=== PATIENT | female | born 1995 | race Caucasian/White ===

== ENCOUNTER → 2024-06-18 11:00 | Outpatient (BNV) | payer OTHER, SELFPAY | PROVIDERS: Visit Provider Psychiatry & Neurology Psychiatry | DX: F33.2 Major depressive disorder, recurrent severe without psychotic features (principal); F34.89 Other specified persistent mood disorders; F90.9 Attention-deficit hyperactivity disorder, unspecified type; F63.89 Other impulse disorders | CPT/HCPCS: 90792 ==

== ENCOUNTER 2024-06-23 11:00 | Outpatient (RCR) | payer OTHER, SELFPAY ==
[2024-06-09 11:52] VITALS: BMI 31.6
[2024-06-09 11:54] VITALS: BP 110/66; PULSE 68; TEMP 36.9
--- NOTE | 2024-06-09 15:06 | PC.ADMIT ---
Patient is a 29 year old trans gendered male who was referred to [facility] d/t increased depression and mood dysregulation. Patient reports increased anxiety with periods of crying, and having, mental breakdowns during periods of crisis. He reports having relationship issues. He and his partner are in couples therapy. He feels he can not do anything right and is having difficulty with challenges of managing life in general. Patient reports recent move to a new apartment stressful and feeling overwhelmed with paying increased rent for a smaller living space. Taking sick leave from work to work on mental health. Patient is alert and oriented x4. Calm and cooperative. He presented with depressed mood and anxious affect. Denied SI. Patient stated if they were to have SI they would reach out to therapist or talk to spouse or close friends or online chat group. Patient given a copy of their safety plan if needed. Medications reconciled with patient and patient's pharmacy. He reports taking medications as prescribed. Patient reports using alcohol occasionally and moderately and Marijuana one to two times a week moderately.
--- NOTE | 2024-06-10 00:05 | HO.PS.ADMBH ---
HPI Date of Service: 06/09/24 Chief Complaint: MDD Sources of Information: patient interviewed, chart reviewed and crisis/core team assessment reviewed Additional Sources of Information: Patient goes by Beny and prefers he/him pronouns HPI Narrative: Patient is an employed 29 yr old transmale with history of mood instability, depression, passive SI, severe anxiety, panic attacks, poor sleep, who was referred to PHP by his therapist for struggles with mood and behavioral dysregulation, feeling easily overstimulated in the context of relationship stressors. Patient shares a lot of the stress is centered around conflicts with his spouse as pertaining to their polyamorous marriage. He relays feelings of emotional neglect and abandonment by spouse who serially disregards their agreed upon boundaries, and does not reciprocate a mutual respect for and consideration of patient's needs. Different things piling up. In December I took time off from work to get a break and rest amaury I wasnt doing good, and take care of myself which helped for a while. But once I started trying to work or get things done I would start feeling unstable again... I would encounter some really huge emotional outbursts even over the smallest things, even though I was aware it was a small thing, but it would set me back . In the Fall he had a couple of incidents of intense crisis, screaming, crying for several hours or days usually because because of an arguement with my spouse, but I cant let it go, I freeze up and get into this state where I'm so upset and overemotional...bad meltdowns... and then my spouse would leave and stay somewhere else . Past Psychiatric History: Denies IPLOC, PHP, detox or respite admissions SA: denies SIB: scratching self Aggression: denies EDB: emotional eating Dx ADHD in Spring 2022 Psychiatrist: Calvin Alfaro Previous med trials: Lexapro CURRENT MEDICATIONS: Cymbalta 60 mg qd Concerta 18 mg qam hydroxyzine 25 mg BID prn anxiety, sleep PMFSH Medical History (Updated 06/10/24 @ 00:10 by Roya Garcia MD) Fracture of upper leg Narrative: Top sx in 2014 previous on testosterone but discont year ago Denies seizures Denies concussions/TBI G0 nulligravid LMP: 05/14 Ht: 5'3 Wt: 178 lbs ALL: NKDA Surgical History (Updated 06/09/24 @ 11:51 by Colette Gallegos RN) H/O mastectomy Family History: uncle with depression, also depression, anxiety, addiction in multiple family no suicides in family Diagnostics Vital Signs (24Hr): Vital Signs - 24 hr 06/09/24 11:54 Temperature 98.4 F Pulse Rate 68 Blood Pressure 110/66 BMI result Body Mass Index 31.6 Meds/Allergies Meds Home Medications ?Medication ?Instructions ?Recorded ?Confirmed ?Type duloxetine 60 mg capsule,delayed 60 mg PO DAILY 06/09/24 06/09/24 History release hydroxyzine HCl 25 mg tablet 25 mg PO BID PRN anxiety, insomnia 06/09/24 06/09/24 History methylphenidate HCl 18 mg 18 mg PO QAM 06/09/24 06/09/24 History tablet,extended release 24 hr (Concerta) Allergies Allergies Allergy/AdvReac Type Severity Reaction Status Date / Time No Known Allergies Allergy Verified 06/09/24 11:52 Mental Status Exam Mental Status Exam Narrative: Alert, oriented, in no acute distress. Calm, cooperative, engaged. No psychomotor agitation or neurovegetative retardation. Eye contact maintained. Mood depressed, affect variable. Speech normal. Thought process linear, coherent. Thought content related to stressors, transient hopelessness, denies SI or HI. No paranoia or delusional content elicited. No evidence of psychosis. Insight and judgment - fair but adequate. Assessment & Plan Assessment & Plan (1) MDD (major depressive disorder), recurrent severe, without psychosis: Status: Acute Code(s): F33.2 - Major depressive disorder, recurrent severe without psychotic features (2) Other specified persistent mood disorders: Status: Acute Code(s): F34.89 - Other specified persistent mood disorders (3) ADHD (attention deficit hyperactivity disorder): Status: Acute Code(s): F90.9 - Attention-deficit hyperactivity disorder, unspecified type (4) Other impulse disorders: Status: Acute Code(s): F63.89 - Other impulse disorders Plan Admit to [facility] VS reviewed: abrefile, BP 110/66;?68 bpm start Abilify 1-2 mg qd (will titrate as tolerated) start guanfacine ER 1 mg qam w Concerta continue other regular medications? Routine lab work ordered as indicated EKG, routine for baseline QTc for medication considerations as indicated UDS as indicated [facility] reviewed Continue to monitor as per protocol Patient educated on: diagnosis and medication risk/benefits Informed Consent: understands Reason for continued partial hosp. stay Substantial Risk for: inability to function, rapid decompensation and med/psych decompensation Certification I certify that partial hospital treatment is medically necessary due to the symptoms and problems resulting from the patient's mental illness and the failure to treat the patient at the partial hospital level of care would likely result in the patient requiring inpatient psychiatric care which could not be prevented at a less intensive level of care. Time Spent With Patient Time: Total time managing care of this patient today __60__ minutes.
--- NOTE | 2024-06-11 15:52 | PHP/IOPCOSI ---
Pt's case has been opened and reviewed in treatment team.
--- NOTE | 2024-06-15 14:00 | PC.NURSE ---
Patient has a new PCP Appointment on August 17, 2024 at 1:00pm with Braden Jj at [address] [place] [address]. [id number]. Office # [phone]
--- NOTE | 2024-06-19 23:57 | P.PNPSP_ITS ---
Subjective Subjective Date of Service: 06/19/24 Reason For Visit: MDD Interim History: Patient seen for follow-up. Things are suspiciously good , mood is starting to improve, feeling more controlled, stress tolerance appears to be improving. He has been better able to apply coping skills that he is learning. Been using deep breathing techniques, I'm learning how to reframe negative self talk . He has started on Abilify 2mg, denies any adverse effects, feels it's going well. Still coming up on difficult moments throughout the week, where he gets overwhelmed but feels he is not getting caught up in it for as long, or not as undoing as it had been. I recognize these same stressors would have wrecked me just a week ago . Also reached out to his partner for support and reassurance. Denies any thoughts of SIB/SI, no HI or AH, VH. Sleep variable, appetite and energy stable. Medication Compliance: Yes Side effects from medications: No Attending Groups: Yes Review of Systems Acute medical concerns: No Mental Status Exam Mental Status Exam Narrative: Alert, oriented, in no acute distress. Calm, cooperative, engaged. No psychomotor agitation or neurovegetative retardation. Eye contact maintained. Mood depressed, affect variable. Speech normal. Thought process linear, coherent. Thought content related to stressors, denies hopelessness or SI. Denies HI or AH or VH. No paranoia or delusional content elicited. No evidence of psychosis. Insight and judgment - fair but adequate. Diagnostics Vital Signs (24Hr): BMI result Body Mass Index 31.6 Assessment & Plan Assessment & Plan (1) MDD (major depressive disorder), recurrent severe, without psychosis: Status: Acute Code(s): F33.2 - Major depressive disorder, recurrent severe without psychotic features (2) Other specified persistent mood disorders: Status: Acute Code(s): F34.89 - Other specified persistent mood disorders (3) ADHD (attention deficit hyperactivity disorder): Status: Acute Code(s): F90.9 - Attention-deficit hyperactivity disorder, unspecified type (4) Other impulse disorders: Status: Acute Code(s): F63.89 - Other impulse disorders Plan will titrate Abilify 2 to 3.5 mg qd (will titrate as tolerated) continue guanfacine ER 1 mg qam w Concerta continue other regular medications? Pending routine lab work ordered as indicated EKG, routine for baseline QTc for medication considerations as indicated Continue to monitor Patient educated on: diagnosis and medication risk/benefits Informed Consent: understands Reason for contiued partial hosp. stay Substantial Risk for: rapid decompensation and med/psych decompensation Certification I certify that partial hospital treatment is medically necessary due to the symptoms and problems resulting from the patient's mental illness and the failure to treat the patient at the partial hospital level of care would likely result in the patient requiring inpatient psychiatric care which could not be prevented at a less intensive level of care. Total time managing care of this patient today __30__ minutes. Discharge Plan Discharge Attending provider: Roya Garcia Additional Instructions: New PCP Appointment on August 17, 2024 at 1:00pm with Braden Jj at [address] [place] [address]. [address]. Office # [phone]. Medications: New aripiprazole 2 mg tablet 2 mg PO BEDTIME Qty: 20 0RF guanfacine 1 mg tablet 1 mg PO DAILY Qty: 20 0RF aripiprazole 5 mg tablet 5 mg PO BEDTIME Qty: 30 0RF methylphenidate HCl 5 mg tablet 5 mg PO DAILY Qty: 20 0RF Rx Instructions: Partial Fill upon patient request. methylphenidate HCl [Concerta] 18 mg tablet extended release 24hr 18 mg PO QAM Qty: 30 0RF Rx Instructions: Partial Fill upon patient request. Continued duloxetine 60 mg capsule,delayed release(DR/EC) 60 mg PO DAILY Qty: 30 0RF hydroxyzine HCl 25 mg Tablet 25 mg PO BID PRN (Reason: anxiety, insomnia) Qty: 30 0RF Discontinued methylphenidate HCl [Concerta] 18 mg tablet extended release 24hr 18 mg PO QAM Stand Alone Forms: Patient Portal Discharge page Print Language: Divehi
--- NOTE | 2024-06-23 12:22 | HO.PHPPROGNO ---
Subjective Subjective Date of Service: 06/23/24 Reason For Visit: MDD Diagnostics Vital Signs (24Hr): BMI result Body Mass Index 31.6 Assessment & Plan Certification I certify that partial hospital treatment is medically necessary due to the symptoms and problems resulting from the patient's mental illness and the failure to treat the patient at the partial hospital level of care would likely result in the patient requiring inpatient psychiatric care which could not be prevented at a less intensive level of care. Total time managing care of this patient today ____ minutes. Discharge Plan Discharge Attending provider: Roya Garcia Additional Instructions: New PCP Appointment on August 17, 2024 at 1:00pm with Braden Jj at [address] [place] [address]. [address]. Office # [phone]. Medications: New aripiprazole 2 mg tablet 2 mg PO BEDTIME Qty: 20 0RF guanfacine 1 mg tablet 1 mg PO DAILY Qty: 20 0RF aripiprazole 5 mg tablet 5 mg PO BEDTIME Qty: 30 0RF methylphenidate HCl 5 mg tablet 5 mg PO DAILY Qty: 20 0RF Rx Instructions: Partial Fill upon patient request. methylphenidate HCl [Concerta] 18 mg tablet extended release 24hr 18 mg PO QAM Qty: 30 0RF Rx Instructions: Partial Fill upon patient request. Continued duloxetine 60 mg capsule,delayed release(DR/EC) 60 mg PO DAILY Qty: 30 0RF hydroxyzine HCl 25 mg Tablet 25 mg PO BID PRN (Reason: anxiety, insomnia) Qty: 30 0RF Discontinued methylphenidate HCl [Concerta] 18 mg tablet extended release 24hr 18 mg PO QAM Stand Alone Forms: Patient Portal Discharge page Patient Education: Mood Disorders (DC), ADHD in Adults (DC), Anxiety (ED) Print Language: Bangladeshi
== END 2024-06-23 23:59 | disposition home or self-care (01) ==
LOC: HO.PHPA 11:00
PROVIDERS: Visit Provider Psychiatry & Neurology Psychiatry
DX: F33.2 Major depressive disorder, recurrent severe without psychotic features (principal); F34.89 Other specified persistent mood disorders; F90.9 Attention-deficit hyperactivity disorder, unspecified type; F63.89 Other impulse disorders; Z79.899 Other long term (current) drug therapy
CPT/HCPCS: 90791; 90853

== ENCOUNTER 2024-08-17 16:18 | Outpatient (AMB) | payer OTHER, SELFPAY ==
--- NOTE | 2024-08-17 16:23 | A.OFFPC_ITS ---
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: No Accompanied by: Self / Same As Patient Allergies No Known Allergies Allergy (Verified 08/17/24 16:45) Medication List - Last Reconciled 08/17/24 by GINNY Johnson aripiprazole 2 mg PO BEDTIME aripiprazole 5 mg PO BEDTIME duloxetine 60 mg PO DAILY guanfacine 1 mg PO DAILY hydroxyzine HCl 50 mg PO BID methylphenidate HCl 5 mg PO DAILY methylphenidate HCl ER (Concerta) 18 mg PO QAM Tobacco use date assessed: 08/17/24 Dental Screening Dental Screen Date: 08/17/24 Did you have a dental visit in the last 12 months?: No Did you have a dental problem in the last 6 months where you did not have access to dental care?: No Was dental information given to patient?: Patient has dentist HPI [facility] HPI Details The patient is a 29-year-old female presenting to [facility] and pursue preventive health check-up and evaluation of family history concerning colorectal cancer. The patient reports previous primary care was obtained at [facility] before the pandemic, without subsequent physical evaluations or blood work post-pandemic. The family history reveals significant occurrences of colorectal cancer; The patient's mother had stage 2, a maternal aunt stage 4, and maternal grandfather regularly monitored for polyps. Add itionally, the patient's maternal great-grandmother and two great aunts had incidences of colon cancer, though it's unclear if this was their cause of . The patient also has chronic diagnoses of ADHD, anxiety, and depression, all of which she manages with therapy and medication prescribed by her psychiatrist. The conditions are reported as controlled. Additionally, she acknowledges a maternal history of cardiovascular disease and hypertension but denies any personal symptoms related to these conditions at present. The patient is not interested is not interested in any gynecological screenings at this time. 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 1. Little interest or pleasure in doing things: more than half the days 2. Feeling down, depressed, or hopeless: more than half the days 3. Trouble falling or staying asleep, or sleeping too much: several days 4. Feeling tired or having little energy: several days 5. Poor appetite or overeating: several days 6. Feeling bad about yourself - or that you are a failure or have let yourself or your family down: more than half the days 7. Trouble concentrating on things, such as reading the newspaper or watching television: several days 8. Moving or speaking so slowly that other people could have noticed. Or the opposite - being so fidgety or restless that you have been moving around a lot more than usual: several days 9. Thoughts that you would be better off or of hurting yourself in some way: more than half the days Total score: 13 Depression Screening Interpretation: Positive Depression Screening Follow-up: Existing condition and In treatment (Patient receives care at [facility]. Psychiatrist: Calvin Alfaro) Depression Screening Done: Yes 60846 - PHQ-9 Billing: Yes Source: Developed by Drs. Ricardo Mercado, Malika Patino, Nicolas Britt and colleagues, with an educational abhilash from [employer]. Thrive Questionnaire Date Thrive assessed: 08/17/24 I am a: Patient What is your living situation today?: I have a steady place to live Within the past 12 months, did the food you bought not last and you didn't have the money to get more?: Never true Within the past 12 months, did you worry whether your food would run out before you got money to buy more?: Never true Do you have trouble paying for medicines?: No Do you have trouble getting transportation to medical appointments?: No Do you have trouble paying your heating and electricity bill?: No Do you have trouble taking care of your child, family member or friend?: No Do you have trouble with day-to-day activities such as bathing, preparing meals, shopping, managing finances, etc.?: No Are you currently unemployed and looking for a job?: No Are you interested in more education?: No Please select the resources that you would like help with: None Currently or been in a relationship where the following occur: No concerns reported THRIVE Score: 0 AUDIT C Alcohol Use Questionnaire (AUDIT-C) 1. How often do you have a drink containing alcohol?: Monthly or less 2. How many drinks containing alcohol do you have on a typical day when you are drinking?: 1 or 2 3. How often do you have six or more drinks on one occasion?: Never Total Score: 1 ISRA-7 AMB Questionnaire ISRA-7 Date ISRA - 7 assessed: 08/17/24 Feeling nervous, anxious, or on edge: 1 = Several days Not being able to stop or control worryin = Several days Worrying too much about different things: 1 = Several days Trouble relaxin = Nearly every day Being so restless that it is hard to sit still: 1 = Several days Becoming easily annoyed or irritable: 2 = More than half the days Feeling afraid as if something awful might happen: 2 = More than half the days Total ISRA-7 score (0-4 normal; 5-9 mild; 10-14 moderate; 15-21 severe): 11 Source: Developed by Drs. Ricardo Mercado, Malika Patino, Nicolas Britt and colleagues, with an educational abhilash from [employer] ISRA-7 Assessment Billing ISRA-7 Assessment Tool: ISRA-7 Assessment 17162 Review of Systems Const Denies headache(s) Eyes Denies loss of vision ENT Denies vertigo, Denies dizziness, Denies headache(s) and Denies sore throat Card Denies chest pain, Denies leg edema and Denies lightheadedness Resp Denies cough, Denies hemoptysis and Denies wheezing GI Denies abdominal pain, Denies melena, Denies constipation, Denies diarrhea and Denies vomiting Denies urinary frequency, Denies dysuria and Denies urinary urgency Musc Denies arthralgias, Denies joint swelling, Denies numbness and Denies tingling Neuro Denies Abnormal speech present, Denies behavioral changes, Denies vertigo, Denies dizziness, Denies headache(s), Denies loss of vision, Denies memory loss, Denies numbness and Denies tingling Psych Reports anxiety, Denies behavioral changes, Reports depression, Denies memory loss and Denies panic attacks Omrales/Lymph Denies easy bleeding and Denies easy bruising Aller/Immun Denies wheezing Physical exam (Primary Care) Vital Signs: Last Vital Signs Temp 97.7 F 08/17/24 16:24 Pulse 82 08/17/24 16:24 BP 114/60 08/17/24 16:24 Pulse Ox 98 08/17/24 16:24 Oxygen Delivery Method Room Air 08/17/24 16:24 BMI result Body Mass Index 31.6 Tobacco/Smoking Status: Tobacco use Status Tobacco use date assessed 08/17/24 08/17/24 16:41 Patient Tobacco Use Status Never used Tobacco 08/17/24 16:24 e-Cigarette/Vaping Use Never Used 08/17/24 16:41 PHQ-9: PHQ-9 Score PHQ-9: Total score 13 08/17/24 17:01 Depression Screening Interpretation: Positive Depression Screening Follow-up: Existing condition and In treatment (Patient receives care at [facility]. Psychiatrist: Calvin Alfaro) Thrive Assessment: Date of Thrive Assessment Date Thrive assessed 08/17/24 08/17/24 16:41 Currently or been in a relationship where the following occur: No concerns reported Const General: healthy appearing, no acute distress, alert and awake Nutritional Appearance: well nourished Orientation/consciousness: oriented to person, oriented to place and oriented to time HENMT Ears: Abnormal EAC present cerumen impaction bilateral (worse in the right) General nose exam: Normal nasal mucous membranes and turbinates present Throat: Yes posterior oropharynx normal Eyes Conjunctivae: conjunctivae normal Sclerae: sclerae normal Pupils: Equal, round and reactive pupils present Neck Neck: Yes no lymphadenopathy and Yes no JVD Thyroid: Thyroid normal Carotids: no bruits Resp Effort & Inspection: normal respiratory effort and not tachypneic Auscultation: no crackles, no rales, no rhonchi and no wheezes Cardio Rate: regular rate Rhythm: regular rhythm Heart sounds: no murmurs and normal S1 and S2 GI Palpation (GI): Soft to palpation, nontender, no hepatomegaly and no splenomegaly Auscultation: normal bowel sounds General: Yes no CVA tenderness Back/Spine/Pelvis Back: no CVA tenderness Skin General skin exam: no rashes or lesions noted and dry skin Neuro General: oriented to person, oriented to place and oriented to time Cranial nerves: Yes Equal, round and reactive pupils present Speech: No Abnormal speech present Gait exam (Neuro): Normal gait present Motor exam (neuro): no tremor noted Psych Mental Status: mental status grossly normal Speech and movement: Normal speech and movement present Affect: normal affect Attitude: cooperative Thought process: Normal thought process present Coding Level of Care Code New Pt Level 4 (39703) Diagnoses Anxiety F41.9 Attention deficit hyperactivity disorder (ADHD), unspecified ADHD type F90.9 Attention deficit-hyperactivity disorder type: unspecified MDD (major depressive disorder), recurrent severe, without psychosis F33.2 Bilateral impacted cerumen H61.23 Additional Codes ISRA-7 Assessment Billing - ISRA-7 Assessment Tool: ISRA-7 Assessment 42908 ([id number]) PHQ-9 - 85144 - PHQ-9 Billing: Yes ([id number]) Time Spent (min) 41 Assessment & Plan Assessment & Plan (1) Anxiety: Code(s): F41.9 - Anxiety disorder, unspecified Category: Medical (2) ADHD (attention deficit hyperactivity disorder): Code(s): F90.9 - Attention-deficit hyperactivity disorder, unspecified type Category: Medical Qualifiers: Attention deficit-hyperactivity disorder type: unspecified Qualified Code(s): F90.9 - Attention-deficit hyperactivity disorder, unspecified type (3) MDD (major depressive disorder), recurrent severe, without psychosis: Code(s): F33.2 - Major depressive disorder, recurrent severe without psychotic features Category: Medical (4) Bilateral impacted cerumen: Code(s): H61.23 - Impacted cerumen, bilateral Category: Medical Plan I will schedule comprehensive laboratory tests, including fasting lipid and glucose panels. Due to her family history of colorectal cancer, a referral to gastroenterology for colonoscopic examination is imperative. The ongoing management of ADHD, anxiety, and depression will continue with her current therapeutic regimen. The noted cerumen impaction will be initially managed with Debrox ear drops, followed by cleaning if necessary. A complete physical examination and laboratory review are planned in six weeks. Her immunizations are current, which supports preventative care efforts. Patient was informed and verbally consented to the use of an ambient scribe for clinic note documentation during this visit. Orders: Orders Comprehensive [place]. Panel Fast Today Z00.00 - Encounter for general adult medical examination without abnormal findings UA CC w/rflx Micro + Cult Today Z00.00 - Encounter for general adult medical examination without abnormal findings Complete Blood Count Auto Diff Today Z00.00 - Encounter for general adult medical examination without abnormal findings Lipid Panel Today Z00.00 - Encounter for general adult medical examination without abnormal findings TSH reflex Free T4 Today Z00.00 - Encounter for general adult medical e xamination without abnormal findings Vitamin D 25-OH Total Today Z00.00 - Encounter for general adult medical examination without abnormal findings Glucose Fasting Today Z00.00 - Encounter for general adult medical examination without abnormal findings Referrals Gastroenterology Referral Z80.0 - Family history of malignant neoplasm of digestive organs Medications: Discontinued hydroxyzine HCl Discontinued Reason: Patient no longer taking 25 mg PO BID PRN 30 tabs 0RF anxiety, insomnia
[2024-08-17 16:24] VITALS: BP 114/60; PULSE 82; TEMP 36.5; O2SAT 98; BMI 31.6
== END 2024-08-17 17:05 | disposition home or self-care (01) ==
LOC: HO.HMCH 16:18
DX: F41.9 Anxiety disorder, unspecified (principal); F90.9 Attention-deficit hyperactivity disorder, unspecified type; F33.2 Major depressive disorder, recurrent severe without psychotic features; H61.23 Impacted cerumen, bilateral

== ENCOUNTER → 2024-08-17 16:18 | Outpatient (BNVA) | payer OTHER, SELFPAY | DX: F41.9 Anxiety disorder, unspecified (principal); F90.9 Attention-deficit hyperactivity disorder, unspecified type; F33.2 Major depressive disorder, recurrent severe without psychotic features; H61.23 Impacted cerumen, bilateral | CPT/HCPCS: 96127 ==

== ENCOUNTER 2024-08-27 09:45 | Outpatient (REF) | payer OTHER, SELFPAY ==
[2024-08-27 10:08] LABS: MANUAL DIFF FLAG NO
[2024-08-27 10:40] LABS: Basophils Absolute Auto 0.1 X10*3/uL (0.0-0.2); Basophils Percent Auto 1.2 % (0-2); Eosinophils Absolute Auto 0.2 X10*3/uL (0.0-0.4); Eosinophils Percent Auto 2.4 % (0-4); Hematocrit 32.6 % (37.0-47.0); Hemoglobin 10.9 g/dl (12.0-16.0); Imm Gran Abs Auto 0.02 X10*3/uL (0.00-0.03); Imm Gran Pct Auto 0.3 % (0.0-0.4); Lymphocytes Absolute Auto 2.5 X10*3/uL (1.2-4.9); Lymphocytes Percent Auto 36.7 % (20-40); Mean Corpuscular HGB Conc 33.4 g/dl (31.0-35.0); Mean Corpuscular Hemoglobin 28.2 pg (27.0-33.0); Mean Corpuscular Volume 84.2 fL (80.0-98.0); Monocytes Absolute Auto 0.4 X10*3/uL (0.1-1.2); Monocytes Percent Auto 5.7 % (2-11); Neutrophils Absolute Auto 3.7 x10*3/uL (2.0-8.3); Neutrophils Percent Auto 53.7 % (45-73); Platelet Count 301 X10*3/uL (160-400); Red Blood Count 3.87 X10*6/uL (4.20-5.50); Red Cell Distribution Width 13.5 % (11.0-16.0); White Blood Count 6.8 X10*3/uL (4.8-10.8)
[2024-08-27 11:36] LABS: Alanine Aminotransferase 19 U/L (0-31); Albumin Level 3.9 g/dL (3.5-5.0); Alkaline Phosphatase 50 U/L (39-117); Anion Gap 9 (12-20); Aspartate Amino Transferase 23 U/L (5-31); Bilirubin Total 0.4 mg/dL (0.0-1.0); Blood Urea Nitrogen 10 mg/dL (9-16); Calcium 9.3 mg/dL (8.4-10.2); Carbon Dioxide 26 mmol/L (22-29); Chloride 106 mmol/L (96-108); Cholesterol 272 mg/dL (<200); Estimated Glomerular Filt Rate > 60; Glucose Fasting 86 mg/dL (60-99); HDL Cholesterol 55 mg/dL (>40); LDL Cholesterol Calculated 191 mg/dL (<100); Sodium 137 mmol/L (135-145); TSH reflex Free T4 5.74 uIU/mL (0.32-4.0); Total Protein 6.9 g/dL (6.5-8.0); Triglycerides 133 mg/dL (<150); Vitamin D 25-OH Total 16.3 ng/mL (>30)
[2024-08-27 11:59] LABS: Appearance Urine Clear; Color Urine Yellow; Glucose Urine UA Negative (Negative); Leukocyte Esterase Urine Negative (Negative); Nitrite Urine Negative (Negative); PH 6.5 (5.0-9.0); Urine Blood Negative (Negative); Urine Ketones Negative (Negative); Urine Protein Negative (Neg-Trace)
[2024-08-27 12:12] LABS: Free T4 (Free Thyroxine) 0.91 ng/dL (0.71-1.85)
== END 2024-08-27 09:46 | disposition home or self-care (01) ==
LOC: HO.LAB 09:45
DX: Z00.00 Encounter for general adult medical examination without abnormal findings (principal)
CPT/HCPCS: 36415; 80053; 80061; 81003; 82306; 84439; 84443; 85025

== ENCOUNTER 2024-10-02 15:16 | Outpatient (AMB) | payer OTHER, SELFPAY ==
--- NOTE | 2024-10-02 15:24 | MHC.PC.OV ---
Vital Signs 10/02/24 15:25 Height 5 ft 3 in Weight 175 lb 4 oz BMI 31.0 BP 100/60 Blood Pressure Location Lt brachial Position Sitting Pulse 72 Pulse Source Pulse Oximeter Temp 97.7 F Temp Source Temporal Artery Scan Pulse Oximetry (%) 99 Oxygen Delivery Method Room Air Intake Visit Reasons: pe Intake Note: Patient is here today for a physical. 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 Required: No Manager Civil: Not Required per policy Accompanied by: Self / Same As Patient Allergies No Known Allergies Allergy (Verified 10/02/24 15:43) Medication List - Last Reconciled 10/02/24 by GINNY Johnson aripiprazole 2 mg PO BEDTIME aripiprazole 5 mg PO BEDTIME atorvastatin 20 mg PO BEDTIME duloxetine 60 mg PO DAILY guanfacine 1 mg PO DAILY hydroxyzine HCl 50 mg PO BID methylphenidate HCl 5 mg PO DAILY methylphenidate HCl ER (Concerta) 18 mg PO QAM Tobacco use date assessed: 10/02/24 Dental Screening Dental Screen Date: 08/17/24 HPI pe HPI Details Dentist: in a while-will check his insurance Eye: up to date Snellen: Right: Left: Corrected vision:yes, contacts STI screening: Colonoscopy:n/a Pap Smer:n/a PHQ-9:n/a Flu: up to date COVID: up to date Tdap:2021-up to date Diet:oatmeal, yogurt with fruits, cereal, frozen meals intermittent, eggs Exercise: Goes for walks, rides bike, dancing intermittently The patient is a 29-year-old transition female to male presenting for a wellness visit, including a routine physical examination and follow-up of prior laboratory results. During the review of the hematology results, she was noted to have anemia indicated by a low red blood cell count. This has not been previously communicated to him, and is considered to be slightly below normal, potentially leaning towards iron deficiency, although further investigation with iron studies, folate, and B12 levels has been discussed. The laboratory results also revealed hypercholesterolemia, with a total cholesterol level at 272 mg/dL and low-density lipoprotein (LDL) cholesterol level at 191 mg/dL, both above the recommended thresholds. The patient reported no known history of hypercholesterolemia prior to this visit but confirmed a family history of high cholesterol. It was noted that her current medications, specifically mood stabilizers, could contribute to elevated cholesterol levels. Additionally, a deficiency in vitamin D was noted, with a level of 16.3 ng/mL, likely influenced by limited sunlight exposure. The patient has been advised to consider vitamin D supplementation. The patient also presents with subclinical hypothyroidism. The laboratory results showed elevated thyroid-stimulating hormone (TSH) with low-normal T4 levels, indicating that her thyroid is working harder than normal to produce sufficient hormones. He reported feeling consistently tired and considered this might be related to both depression and low functioning thyroid. Health maintenance: - Influenza and COVID-19 vaccinations regularly updated - Tetanus vaccination received in 2021, next due in 2031 - Vitamin D3 supplementation recommended at 2000 IU (50 mcg) daily - Aim to reduce cholesterol levels through dietary modifications and continue atorvastatin - Regular physical activity including walking, jogging, bicycling, and folk dancing encouraged - Discussed importance of routine dental visits, with a recommendation for a check-up due to prolonged lapse since last visit - Eye examination conducted within the past year [facility] Medical History Anxiety MDD (major depressive disorder), recurrent severe, without psychosis ADHD (attention deficit hyperactivity disorder) Fracture of upper leg Surgical History S/P wisdom tooth extraction H/O mastectomy Family History Mother Colon cancer Maternal Aunt Colon cancer Maternal Grandfather Multiple gastric polyps Social History Household Members: Spouse Housing: Apartment Patient Tobacco Use Status: Never used Tobacco e-Cigarette/Vaping Use: Never Used Second Hand Smoke Exposure: No service: No Current occupational status: employed 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 Cognitive needs: No Hearing needs: No Vision needs: No Questionnaire Thrive Questionnaire Date Thrive assessed: 08/15/24 I am a: Patient What is your living situation today?: I have a steady place to live Within the past 12 months, did the food you bought not last and you didn't have the money to get more?: Never true Within the past 12 months, did you worry whether your food would run out before you got money to buy more?: Never true Do you have trouble paying for medicines?: No Do you have trouble getting transportation to medical appointments?: No Do you have trouble paying your heating and electricity bill?: No Do you have trouble taking care of your child, family member or friend?: No Do you have trouble with day-to-day activities such as bathing, preparing meals, shopping, managing finances, etc.?: No Are you currently unemployed and looking for a job?: No Are you interested in more education?: No Please select the resources that you would like help with: None Currently or been in a relationship where the following occur: No concerns reported THRIVE Score: 0 ISRA-7 AMB Questionnaire ISRA-7 Date ISRA - 7 assessed: 08/17/24 Source: Developed by Drs. Ricardo Mercado, Malika Patino, Nicolas Britt and colleagues, with an educational abhilash from [employer]. Review of Systems Const Denies headache(s) and Reports lethargy Eyes Denies loss of vision ENT Denies vertigo, Denies dizziness, Denies headache(s) and Denies sore throat Card Denies chest pain, Denies leg edema and Denies lightheadedness Resp Denies cough, Denies hemoptysis and Denies wheezing GI Denies abdominal pain, Denies melena, Denies constipation, Denies diarrhea and Denies vomiting Denies urinary frequency, Denies dysuria and Denies urinary urgency Musc Denies arthralgias, Denies joint swelling, Denies numbness and Denies tingling Neuro Denies Abnormal speech present, Denies behavioral changes, Denies vertigo, Denies dizziness, Denies headache(s), Denies loss of vision, Denies memory loss, Denies numbness and Denies tingling Psych Denies anxiety, Denies behavioral changes, Reports depression, Denies memory loss and Denies panic attacks Morales/Lymph Denies easy bleeding and Denies easy bruising Aller/Immun Denies wheezing Physical exam (Primary Care) Vital Signs: Last Vital Signs Temp 97.7 F 10/02/24 15:25 Pulse 72 10/02/24 15:25 BP 100/60 10/02/24 15:25 Pulse Ox 99 10/02/24 15:25 Oxygen Delivery Method Room Air 05/30/25 15:25 BMI result Body Mass Index 31.0 Tobacco/Smoking Status: Tobacco use Status Tobacco use date assessed 10/02/24 10/02/24 15:31 Patient Tobacco Use Status Never used Tobacco 10/02/24 15:31 e-Cigarette/Vaping Use Never Used 10/02/24 15:31 Thrive Assessment: Date of Thrive Assessment Date Thrive assessed 08/15/24 10/02/24 15:31 Currently or been in a relationship where the following occur: No concerns reported Const General: healthy appearing, no acute distress, alert and awake Nutritional Appearance: well nourished Orientation/consciousness: oriented to person, oriented to place and oriented to time HENMT Ears: TM's normal bilaterally General nose exam: Normal nasal mucous membranes and turbinates present Eyes Conjunctivae: conjunctivae normal Sclerae: sclerae normal Pupils: Equal, round and reactive pupils present Neck Neck: Yes no lymphadenopathy and Yes no JVD Thyroid: Thyroid normal Carotids: no bruits Resp Effort & Inspection: normal respiratory effort and not tachypneic Auscultation: no crackles, no rales, no rhonchi and no wheezes Cardio Rate: regular rate Rhythm: regular rhythm Heart sounds: no murmurs and normal S1 and S2 GI Palpation (GI): Soft to palpation, nontender, no hepatomegaly and no splenomegaly Auscultation: normal bowel sounds Skin General skin exam: no rashes or lesions noted and dry skin Neuro General: oriented to person, oriented to place and oriented to time Cranial nerves: Yes Equal, round and reactive pupils present Speech: No Abnormal speech present Gait exam (Neuro): Normal gait present Motor exam (neuro): no tremor noted Extrem Right upper extremity: full ROM Left upper extremity: full ROM Right lower extremity: full ROM; no edema Left lower extremity: full ROM; no edema Psych Mental Status: mental status grossly normal Speech and movement: Normal speech and movement present Affect: normal affect Attitude: cooperative Thought process: Normal thought process present Results Reviewed Results Reviewed: Laboratory Tests 08/27/24 08/27/24 09:59 10:05 WBC 6.8 RBC 3.87 L Hgb 10.9 L Hct 32.6 L MCV 84.2 MCH 28.2 MCHC 33.4 RDW 13.5 Plt Count 301 Sodium 137 Potassium 4.0 Chloride 106 Carbon Dioxide 26 Anion Gap 9 L BUN 10 Creatinine 0.67 Estimated GFR > 60 Fasting Glucose 86 Calcium 9.3 Total Bilirubin 0.4 AST 23 ALT 19 Alkaline Phosphatase 50 Total Protein 6.9 Albumin 3.9 Triglycerides 133 Cholesterol 272 H LDL Cholesterol, Calc 191 H HDL Cholesterol 55 25-OH Vitamin D Total 16.3 L TSH 5.74 H Free T4 0.91 Urine Color Yellow Urine Appearance Clear Urine pH 6.5 Ur Specific [place] 1.010 Urine Protein Negative Urine Glucose (UA) Negative Urine Ketones Negative Urine Blood Negative Urine Nitrite Negative Ur Leukocyte Esterase Negative Coding Level of Care Code Est Pt Prev Care [id number]([id number]) Diagnoses Annual physical exam Z00.00 Pure hypercholesterolemia with target low density lipoprotein (LDL) cholesterol less than 130 mg/dL E78.00 Vitamin D deficiency E55.9 Anemia, unspecified type D64.9 Anemia type: unspecified type Elevated TSH R79.89 Anxiety F41.9 Attention deficit hyperactivity disorder (ADHD), unspecified ADHD type F90.9 Attention deficit-hyperactivity disorder type: unspecified MDD (major depressive disorder), recurrent severe, without psychosis F33.2 Other specified persistent mood disorders F34.89 Time Spent (min) 36 Assessment & Plan Assessment & Plan (1) Annual physical exam: Code(s): Z00.00 - Encounter for general adult medical examination without abnormal findings Category: Medical (2) Pure hypercholesterolemia with target low density lipoprotein (LDL) cholesterol less than 130 mg/dL: Code(s): E78.00 - Pure hypercholesterolemia, unspecified Category: Medical (3) Vitamin D deficiency: Code(s): E55.9 - Vitamin D deficiency, unspecified Category: Medical (4) Anemia: Code(s): D64.9 - Anemia, unspecified Category: Medical Qualifiers: Anemia type: unspecified type Qualified Code(s): D64.9 - Anemia, unspecified (5) Elevated TSH: Code(s): R79.89 - Other specified abnormal findings of blood chemistry Category: Medical (6) Anxiety: Code(s): F41.9 - Anxiety disorder, unspecified Category: Medical (7) ADHD (attention deficit hyperactivity disorder): Code(s): F90.9 - Attention-deficit hyperactivity disorder, unspecified type Category: Medical Qualifiers: Attention deficit-hyperactivity disorder type: unspecified Qualified Code(s): F90.9 - Attention-deficit hyperactivity disorder, unspecified type (8) MDD (major depressive disorder), recurrent severe, without psychosis: Code(s): F33.2 - Major depressive disorder, recurrent severe without psychotic features Category: Medical (9) Other specified persistent mood disorders: Code(s): F34.89 - Other specified persistent mood disorders Category: Medical Plan I will evaluate anemia with further laboratory tests including iron studies, folate, and levels. Hypercholesterolemia management will be reinforced with dietary modifications and continuation of atorvastatin, with cholesterol rechecked in three months. For her vitamin D deficiency, supplementation with vitamin D3 has been advised. The patient's subclinical hypothyroidism will be carefully monitored with repeat testing in six weeks to determine future treatment needs. Ongoing management of depression will be supported by reviewing current treatment regimen. Regular physical activity and health maintenance screenings are encouraged. Continue current mood stabilizer and antidepressant treatments, including stimulants for ADHD. Follow up with Psychiatry as scheduled. Patient was informed and verbally consented to the use of an ambient scribe for clinic note documentation during this visit. Orders: Orders Free T4 (Free Thyroxine) 6 Weeks R79.89 - Other specified abnormal findings of blood chemistry Complete Blood Count Auto Diff 3 Months D64.9 - Anemia, unspecified, E55.9 - Vitamin D deficiency, unspecified, E78.00 - Pure hypercholesterolemia, unspecified Lipid Panel 3 Months D64.9 - Anemia, unspecified, E55.9 - Vitamin D deficiency, unspecified, E78.00 - Pure hypercholesterolemia, unspecified Vitamin D 25-OH Total 3 Months D64.9 - Anemia, unspecified, E55.9 - Vitamin D deficiency, unspecified, E78.00 - Pure hypercholesterolemia, unspecified TSH reflex Free T4 6 Weeks R79.89 - Other specified abnormal findings of blood chemistry Comprehensive [place]. Panel Fast 3 Months D64.9 - Anemia, unspecified, E55.9 - Vitamin D deficiency, unspecified, E78.00 - Pure hypercholesterolemia, unspecified UA CC w/rflx Micro + Cult 3 Months D64.9 - Anemia, unspecified, E55.9 - Vitamin D deficiency, unspecified, E78.00 - Pure hypercholesterolemia, unspecified Vitamin B12 and Folate 3 Months D64.9 - Anemia, unspecified, E55.9 - Vitamin D deficiency, unspecified, E78.00 - Pure hypercholesterolemia, unspecified IRON PROFILE 3 Months D64.9 - Anemia, unspecified, E55.9 - Vitamin D deficiency, unspecified, E78.00 - Pure hypercholesterolemia, unspecified
[2024-10-02 15:25] VITALS: BP 100/60; PULSE 72; TEMP 36.5; O2SAT 99; BMI 31.0
== END 2024-10-02 16:17 | disposition home or self-care (01) ==
LOC: HO.HMCH 15:17
DX: Z00.00 Encounter for general adult medical examination without abnormal findings (principal); E78.00 Pure hypercholesterolemia, unspecified; F33.2 Major depressive disorder, recurrent severe without psychotic features; E55.9 Vitamin D deficiency, unspecified; D64.9 Anemia, unspecified; R79.89 Other specified abnormal findings of blood chemistry; F41.9 Anxiety disorder, unspecified; F90.9 Attention-deficit hyperactivity disorder, unspecified type; F34.89 Other specified persistent mood disorders

== ENCOUNTER 2024-11-12 08:56 | Outpatient (REF) | payer OTHER, SELFPAY ==
[2024-11-12 10:26] LABS: Free T4 (Free Thyroxine) 0.93 ng/dL (0.71-1.85)
== END 2024-11-12 08:57 | disposition home or self-care (01) ==
LOC: HO.LAB 08:56
DX: R79.89 Other specified abnormal findings of blood chemistry (principal)
CPT/HCPCS: 36415; 84439; 84443

== ENCOUNTER 2024-12-31 08:24 | Outpatient (REF) | payer OTHER, SELFPAY ==
[2024-12-31 08:54] LABS: MANUAL DIFF FLAG NO
[2024-12-31 09:04] LABS: Hematocrit 35.5 % (37.0-47.0); Hemoglobin 11.7 g/dl (12.0-16.0); Imm Gran Abs Auto 0.02 X10*3/uL (0.00-0.03); Imm Gran Pct Auto 0.3 % (0.0-0.4); Lymphocytes Absolute Auto 2.6 X10*3/uL (1.2-4.9); Mean Corpuscular HGB Conc 33.0 g/dl (31.0-35.0); Mean Corpuscular Hemoglobin 28.0 pg (27.0-33.0); Mean Corpuscular Volume 84.9 fL (80.0-98.0); NRBC Abs Auto 0.000 X10*3/uL (0.0-0.012); NRBC Pct Auto 0.0 /100WBC (0.0-0.2); Platelet Count 259 X10*3/uL (160-400); Red Blood Count 4.18 X10*6/uL (4.20-5.50); White Blood Count 6.9 X10*3/uL (4.8-10.8)
[2024-12-31 09:17] LABS: Hemoglobin A1C 111.8522 umol/L; Total Hemoglobin (HGBA1C) 3087.3473 umol/L
[2024-12-31 09:49] LABS: Alanine Aminotransferase 33 U/L (0-31); Albumin Level 4.4 g/dL (3.5-5.0); Alkaline Phosphatase 53 U/L (39-117); Anion Gap 11 (12-20); Aspartate Amino Transferase 35 U/L (5-31); Blood Urea Nitrogen 13 mg/dL (9-16); Calcium 9.6 mg/dL (8.4-10.2); Carbon Dioxide 24 mmol/L (22-29); Chloride 107 mmol/L (96-108); Cholesterol 186 mg/dL (<200); Estimated Glomerular Filt Rate > 60; HDL Cholesterol 47 mg/dL (>40); Iron 88 mcg/dL (30-160); Percent Iron Saturation 27 % (15-50); Potassium 4.4 mmol/L (3.3-5.1); Sodium 138 mmol/L (135-145); Total Iron Binding Capacity 330 mcg/dL (228-428); Total Protein 7.5 g/dL (6.5-8.0); Triglycerides 136 mg/dL (<150); Unsaturated Iron Binding 242 ug/dL
[2024-12-31 10:03] LABS: Folate 12.7 ng/mL (> or = 4.0); Vitamin B12 754 pg/mL (200-900)
[2024-12-31 10:30] LABS: Appearance Urine Clear; Glucose Urine UA Negative (Negative); PH 7.0 (5.0-9.0); Specific Gravity - Urine 1.015 (1.005-1.025); UMIC TRIGGER UACC YES
[2024-12-31 10:42] LABS: UACC Culture Trigger YES
[2025-01-07 15:59] LABS: Testosterone, Free 4.5 pg/mL (0.1-6.4)
[2025-01-11 12:32] LABS: Anti Nuclear Antibody Pattern Nuclear, Speckled; Anti Nuclear Antibody Screen POSITIVE (NEGATIVE); Anti Nuclear Antibody Titer 1:40 titer
== END 2024-12-31 08:25 | disposition home or self-care (01) ==
LOC: HO.LAB 08:24
DX: Z13.1 Encounter for screening for diabetes mellitus (principal); Z01.84 Encounter for antibody response examination; R53.83 Other fatigue; D64.9 Anemia, unspecified; E55.9 Vitamin D deficiency, unspecified; E78.00 Pure hypercholesterolemia, unspecified
CPT/HCPCS: 36415; 80053; 80061; 81001; 81003; 82306; 82607; 82746; 83036; 83540; 84402; 84403; 85025; 85652; 86038; 86039; 86141; 87086

== ENCOUNTER 2025-01-05 10:44 | Outpatient (AMB) | payer OTHER, SELFPAY ==
[2025-01-05 10:58] VITALS: BP 102/60; PULSE 63; RESP 18; TEMP 36.4; O2SAT 97; BMI 32.3
--- NOTE | 2025-01-05 10:58 | A.OFFPC_ITS ---
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 Accompanied by: Self / Same As Patient Allergies No Known Allergies Allergy (Verified 01/05/25 11:23) Medication List - Last Reconciled 01/05/25 by GINNY Johnson aripiprazole 2 mg PO BEDTIME aripiprazole 5 mg PO BEDTIME atorvastatin 20 mg PO BEDTIME duloxetine 60 mg PO DAILY guanfacine 1 mg PO DAILY hydroxyzine HCl 50 mg PO BID methylphenidate HCl 5 mg PO DAILY methylphenidate HCl ER (Concerta) 18 mg PO QAM Tobacco use date assessed: 01/05/25 Dental Screening Dental Screen Date: 01/05/25 Did you have a dental visit in the last 12 months?: No Did you have a dental problem in the last 6 months where you did not have access to dental care?: No Was dental information given to patient?: Patient has dentist HPI hld/anema/vitamin d deficiency HPI Details The patient is a 29-year-old female presenting with fatigue and anemia management. The patient reports persistent fatigue, which she is unsure if it is related to mental or physical health issues. She is currently being evaluated for anemia, with hemoglobin levels improving from 10.9 to 11.7 g/dL, though still below the normal range. Her iron levels are in the low normal range, and she is consid ering dietary adjustments to increase iron intake. The patient has a history of hyperlipidemia and is on cholesterol medication, which may be contributing to slightly elevated liver enzymes. She is making lifestyle changes, including increased physical activity and dietary modifications, to manage her cholesterol levels. The patient experiences anxiety, which occasionally affects her gastrointestinal comfort, though she denies any significant changes in bowel habits. 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 1. Little interest or pleasure in doing things: more than half the days 2. Feeling down, depressed, or hopeless: more than half the days 3. Trouble falling or staying asleep, or sleeping too much: several days 4. Feeling tired or having little energy: several days 5. Poor appetite or overeating: several days 6. Feeling bad about yourself - or that you are a failure or have let yourself or your family down: nearly every day 7. Trouble concentrating on things, such as reading the newspaper or watching television: more than half the days 8. Moving or speaking so slowly that other people could have noticed. Or the opposite - being so fidgety or restless that you have been moving around a lot more than usual: several days 9. Thoughts that you would be better off or of hurting yourself in some way: not at all Total score: 13 Source: Developed by Drs. Ricardo Mercado, Malika Patino, Nicolas Britt and colleagues, with an educational abhilash from [employer]. Thrive Questionnaire Date Thrive assessed: 01/05/25 I am a: Patient What is your living situation today?: I have a steady place to live Within the past 12 months, did the food you bought not last and you didn't have the money to get more?: Never true Within the past 12 months, did you worry whether your food would run out before you got money to buy more?: Never true Do you have trouble paying for medicines?: No Do you have trouble getting transportation to medical appointments?: No Do you have trouble paying your heating and electricity bill?: No Do you have trouble taking care of your child, family member or friend?: No Do you have trouble with day-to-day activities such as bathing, preparing meals, shopping, managing finances, etc.?: No Are you currently unemployed and looking for a job?: No Are you interested in more education?: No Please select the resources that you would like help with: None Currently or been in a relationship where the following occur: No concerns reported THRIVE Score: 0 AUDIT C Alcohol Use Questionnaire (AUDIT-C) 1. How often do you have a drink containing alcohol?: Monthly or less 2. How many drinks containing alcohol do you have on a typical day when you are drinking?: 1 or 2 3. How often do you have six or more drinks on one occasion?: Never Total Score: 1 ISRA-7 AMB Questionnaire ISRA-7 Date ISRA - 7 assessed: 01/05/25 Feeling nervous, anxious, or on edge: 1 = Several days Not being able to stop or control worryin = Several days Worrying too much about different things: 1 = Several days Trouble relaxin = Nearly every day Being so restless that it is hard to sit still: 1 = Several days Becoming easily annoyed or irritable: 2 = More than half the days Feeling afraid as if something awful might happen: 2 = More than half the days Total ISRA-7 score (0-4 normal; 5-9 mild; 10-14 moderate; 15-21 severe): 11 Source: Developed by Drs. Ricardo Mercado, Malika Patino, Nicolas Britt and colleagues, with an educational abhilash from [employer]. Review of Systems Const Denies body aches, Denies chills, Denies fever(s), Denies headache(s) and Denies poor appetite Eyes Reports no additional complaints ENT Denies dysphagia, Denies dizziness, Denies headache(s) and Denies odynophagia Card Denies chest pain, Denies syncope, Denies edema, Denies irregular heart rhythm, Denies lightheadedness and Denies dyspnea Resp Denies cough and Denies dyspnea GI Denies abdominal pain, Denies constipation, Denies dysphagia, Denies diarrhea, Denies nausea, Denies odynophagia and Denies vomiting Reports no additional complaints Musc Reports no additional complaints and Denies abnormal gait Skin/Breast Reports system reviewed and no additional complaints, except as documented Neuro Denies abnormal gait, Denies dizziness, Denies syncope and Denies headache(s) Psych Reports anxiety and Reports depression Physical exam (Primary Care) Vital Signs: Last Vital Signs Temp 97.5 F 01/05/25 10:58 Pulse 63 01/05/25 10:58 Resp 18 01/05/25 10:58 BP 102/60 01/05/25 10:58 Pulse Ox 97 01/05/25 10:58 Oxygen Delivery Method Room Air 01/05/25 10:58 BMI result Body Mass Index 32.3 Tobacco/Smoking Status: Tobacco use Status Tobacco use date assessed 01/05/25 01/05/25 11:05 Patient Tobacco Use Status Never used Tobacco 01/05/25 11:05 e-Cigarette/Vaping Use Never Used 01/05/25 11:05 PHQ-9: PHQ-9 Score PHQ-9: Total score 13 01/05/25 13:27 Thrive Assessment: Date of Thrive Assessment Date Thrive assessed 01/05/25 01/05/25 11:05 Currently or been in a relationship where the following occur: No concerns reported Const General: cooperative, healthy appearing, comfortable and no acute distress Orientation/consciousness: patient oriented x3 HENMT Head: Yes normocephalic Ears: hearing grossly normal bilaterally General nose exam: Normal external nose present Eyes General: appearance normal, both eyes and all related structures Conjunctivae: conjunctivae normal Neck Neck: Yes full ROM and Yes no lymphadenopathy Resp Effort & Inspection: normal respiratory effort Auscultation: clear to auscultation bilaterally, no crackles, no rales, no rhonchi and no wheezes Cardio Rate: regular rate Rhythm: regular rhythm Skin General skin exam: no rashes or lesions noted Neuro General: patient oriented x3 Gait exam (Neuro): Normal gait present Extrem General: Yes normal to inspection, Yes full ROM and No edema Psych Affect: normal affect Attitude: cooperative Insight: Good insight present (Psych) Judgement: Good judgement present (Psych) Results Reviewed Results Reviewed: Laboratory Tests 08/27/24 11/12/24 12/31/24 10:05 09:10 08:47 WBC RBC Hgb Hct MCV MCH MCHC RDW Plt Count MPV Immature Gran % (Auto) Neut % (Auto) Sodium Potassium Chloride Carbon Dioxide Anion Gap BUN Creatinine Estim Creat Clear Calc Estimated GFR Fasting Glucose Estimat Average Glucose Hemoglobin A1c % Calcium Iron TIBC % Saturation Unsat Iron Binding Total Bilirubin AST ALT Alkaline Phosphatase C-React Prot High Sens Total Protein Albumin Triglycerides Cholesterol LDL Cholesterol, Calc HDL Cholesterol Vitamin B12 25-OH Vitamin D Total Folate TSH 5.74 H 4.03 H Free T4 0.91 0.93 Urine Color Yellow Urine Appearance Clear Urine pH 7.0 Ur Specific [place] 1.015 Urine Protein Negative Urine Glucose (UA) Negative Urine Ketones Negative Urine Blood Trace H Urine Nitrite Negative Ur Leukocyte Esterase Moderate (2+) H Urine RBC 0-2 Urine WBC 0-5 Ur Squamous Epith Cells 3-5 Urine Bacteria 1+ Hyaline Casts 0-2 12/31/24 08:52 WBC 6.9 RBC 4.18 L Hgb 11.7 L Hct 35.5 L MCV 84.9 MCH 28.0 MCHC 33.0 RDW 14.6 Plt Count 259 MPV 9.1 L Immature Gran % (Auto) 0.3 Neut % (Auto) 50.2 Sodium 138 Potassium 4.4 Chloride 107 Carbon Dioxide 24 Anion Gap 11 L BUN 13 Creatinine 0.86 Estim Creat Clear Calc Not Reportable Estimated GFR > 60 Fasting Glucose 90 Estimat Average Glucose 111 Hemoglobin A1c % 5.5 Calcium 9.6 Iron 88 TIBC 330 % Saturation 27 Unsat Iron Binding 242 Total Bilirubin 0.6 AST 35 H ALT 33 H Alkaline Phosphatase 53 C-React Prot High Sens 0.6 Total Protein 7.5 Albumin 4.4 Triglycerides 136 Cholesterol 186 LDL Cholesterol, Calc 112 H HDL Cholesterol 47 Vitamin B12 754 25-OH Vitamin D Total 49.6 Folate 12.7 TSH Free T4 Urine Color Urine Appearance Urine pH Ur Specific [place] Urine Protein Urine Glucose (UA) Urine Ketones Urine Blood Urine Nitrite Ur Leukocyte Esterase Urine RBC Urine WBC Ur Squamous Epith Cells Urine Bacteria Hyaline Casts Coding Level of Care Code Est Pt Level 3 (46834) Diagnoses Pure hypercholesterolemia with target low density lipoprotein (LDL) cholesterol less than 130 mg/dL E78.00 Vitamin D deficiency E55.9 Anemia, unspecified type D64.9 Anemia type: unspecified type Elevated TSH R79.89 Anxiety F41.9 Attention deficit hyperactivity disorder (ADHD), unspecified ADHD type F90.9 Attention deficit-hyperactivity disorder type: unspecified MDD (major depressive disorder), recurrent severe, without psychosis F33.2 Other specified persistent mood disorders F34.89 Fatigue, unspecified type R53.83 Fatigue type: unspecified Time Spent (min) 37 Assessment & Plan Assessment & Plan (1) Pure hypercholesterolemia with target low density lipoprotein (LDL) cholesterol less than 130 mg/dL: Code(s): E78.00 - Pure hypercholesterolemia, unspecified Category: Medical Plan: The patient LDL went from 191 to 112 Reinforced low-cholesterol diet and activity as tolerated Continue atorvastatin 20 mg daily We will repeat lipid panel in 3 months (2) Vitamin D deficiency: Code(s): E55.9 - Vitamin D deficiency, unspecified Category: Medical Plan: Continue vitamin D3 OTC (3) Anemia: Code(s): D64.9 - Anemia, unspecified Category: Medical Qualifiers: Anemia type: unspecified type Qualified Code(s): D64.9 - Anemia, unspecified Plan: RBC 4.18, Hgb 11.7, Hct 35.5 Iron levels low normal. Increase foods that are high in iron We will repeat CBC in 3 months (4) Elevated TSH: Code(s): R79.89 - Other specified abnormal findings of blood chemistry Category: Medical Plan: TSH slightly elevated and T4 within normal limits No new interventions at this time We will repeat TFTs in 3 months (5) Anxiety: Code(s): F41.9 - Anxiety disorder, unspecified Category: Medical Plan: Encouraged CBT Continue duloxetine 60 mg daily, hydroxyzine 50 mg b.i.d. Denies SI/HI Follow up with Psychiatry as scheduled (6) ADHD (attention deficit hyperactivity disorder): Code(s): F90.9 - Attention-deficit hyperactivity disorder, unspecified type Category: Medical Qualifiers: Attention deficit-hyperactivity disorder type: unspecified Qualified Code(s): F90.9 - Attention-deficit hyperactivity disorder, unspecified type Plan: Continue guanfacine 1 mg daily, methylphenidate 5 mg daily, methylphenidate 18 mg ER q.a.m. Follow up with Psychiatry as scheduled (7) MDD (major depressive disorder), recurrent severe, without psychosis: Code(s): F33.2 - Major depressive disorder, recurrent severe without psychotic features Category: Medical Plan: Continue aripiprazole 2 mg at bedtime, aripiprazole 5 mg at bedtime, duloxetine 60 mg daily Follow up with Psychiatry as scheduled (8) Other specified persistent mood disorders: Code(s): F34.89 - Other specified persistent mood disorders Category: Medical Plan: Same as above (9) Fatigue: Code(s): R53.83 - Other fatigue Category: Medical Qualifiers: Fatigue type: unspecified Qualified Code(s): R53.83 - Other fatigue Plan: Patient complains of fatigue. Anemia ongoing but has been improving. Testosterone results are still pending. Patient plans to increase foods high in iron. Fatigue is being evaluated in the context of anemia and potential mental health factors. Further assessment will be conducted once testosterone levels are available. Orders: Orders Complete Blood Count Auto Diff 3 Months D64.9 - Anemia, unspecified, E55.9 - Vitamin D deficiency, unspecified, E78.00 - Pure hypercholesterolemia, unspecified, F33.2 - Major depressive disorder, recurrent severe without psychotic features, F34.89 - Other specified persistent mood disorders, F41.9 - Anxiety disorder, unspecified, F90.9 - Attention-deficit hyperactivity disorder, unspecified type, R53.83 - Other fatigue, R74.8 - Abnormal levels of other serum enzymes, R79.89 - Other specified abnormal findings of blood chemistry UA CC w/rflx Micro + Cult 3 Months D64.9 - Anemia, unspecified, E55.9 - Vitamin D deficiency, unspecified, E78.00 - Pure hypercholesterolemia, unspecified, F33.2 - Major depressive disorder, recurrent severe without psychotic features, F34.89 - Other specified persistent mood disorders, F41.9 - Anxiety disorder, unspecified, F90.9 - Attention-deficit hyperactivity disorder, unspecified type, R53.83 - Other fatigue, R74.8 - Abnormal levels of other serum enzymes, R79.89 - Other specified abnormal findings of blood chemistry Comprehensive [place]. Panel Fast 3 Months D64.9 - Anemia, unspecified, E55.9 - Vitamin D deficiency, unspecified, E78.00 - Pure hypercholesterolemia, unspecified, F33.2 - Major depressive disorder, recurrent severe without psychotic features, F34.89 - Other specified persistent mood disorders, F41.9 - Anxiety disorder, unspecified, F90.9 - Attention-deficit hyperactivity disorder, unspecified type, R53.83 - Other fatigue, R74.8 - Abnormal levels of other serum enzymes, R79.89 - Other specified abnormal findings of blood chemistry Lipid Panel 3 Months D64.9 - Anemia, unspecified, E55.9 - Vitamin D deficiency, unspecified, E78.00 - Pure hypercholesterolemia, unspecified, F33.2 - Major depressive disorder, recurrent severe without psychotic features, F34.89 - Other specified persistent mood disorders, F41.9 - Anxiety disorder, unspecified, F90.9 - Attention-deficit hyperactivity disorder, unspecified type, R53.83 - Other fatigue, R74.8 - Abnormal levels of other serum enzymes, R79.89 - Other specified abnormal findings of blood chemistry TSH reflex Free T4 3 Months D64.9 - Anemia, unspecified, E55.9 - Vitamin D deficiency, unspecified, E78.00 - Pure hypercholesterolemia, unspecified, F33.2 - Major depressive disorder, recurrent severe without psychotic features, F34.89 - Other specified persistent mood disorders, F41.9 - Anxiety disorder, u nspecified, F90.9 - Attention-deficit hyperactivity disorder, unspecified type, R53.83 - Other fatigue, R74.8 - Abnormal levels of other serum enzymes, R79.89 - Other specified abnormal findings of blood chemistry Free T4 (Free Thyroxine) 3 Months D64.9 - Anemia, unspecified, E55.9 - Vitamin D deficiency, unspecified, E78.00 - Pure hypercholesterolemia, unspecified, F33. 2 - Major depressive disorder, recurrent severe without psychotic features, F34.89 - Other specified persistent mood disorders, F41.9 - Anxiety disorder, unspecified, F90.9 - Attention-deficit hyperactivity disorder, unspecified type, R53.83 - Other fatigue, R74.8 - Abnormal levels of other serum enzymes, R79.89 - Other specified abnormal findings of blood chemistry
== END 2025-01-05 11:41 | disposition home or self-care (01) ==
LOC: HO.HMCH 10:46
DX: E78.00 Pure hypercholesterolemia, unspecified (principal); F33.2 Major depressive disorder, recurrent severe without psychotic features; E55.9 Vitamin D deficiency, unspecified; D64.9 Anemia, unspecified; R79.89 Other specified abnormal findings of blood chemistry; F41.9 Anxiety disorder, unspecified; F90.9 Attention-deficit hyperactivity disorder, unspecified type; F34.89 Other specified persistent mood disorders; R53.83 Other fatigue

== ENCOUNTER 2025-02-04 09:53 | Outpatient (AMB) | payer OTHER, SELFPAY ==
--- NOTE | 2025-02-04 09:55 | A.OFFVIS_ITS ---
Vital Signs 02/04/25 09:59 Height 5 ft 3 in Weight 180 lb 12.465 oz BMI 32.0 BP 111/59 L Blood Pressure Location Lt brachial Pulse 61 Pulse Source Pulse Oximeter Pulse Oximetry (%) 98 Oxygen Delivery Method Room Air Intake Visit Reasons: Family hx of malignant neoplasm Intake Note: New patient in office today for colonoscopy screening. CC: Patient denies having any GI symptoms or concern today. 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 She is referred by Braden Jj. PMX Obesity BMI 32 High cholesterol Transaminitis Anxiety/ADHD/depression * SURGICAL HISTORY [place] teeth extraction Double mastectomy * ALLERGIES: NKDA * [employer] LABS: Laboratory Tests 12/31/24 08:52 WBC 6.9 Hgb 11.7 L Hct 35.5 L MCV 84.9 MCH 28.0 Plt Count 259 Estimated GFR > 60 Total Bilirubin 0.6 AST 35 H ALT 33 H Alkaline Phosphatase 53 TODAY'S VISIT This is her first colonoscopy, her mother had stage 2 CRC at age 50. She denies any bowel or upper GI problems There are no prior problems with anesthesia or sedation. She denies any cardiac or respiratory problems. There are no infectious disease problems. FHX as above. [facility] Medical History Annual physical exam Anxiety MDD (major depressive disorder), recurrent severe, without psychosis ADHD (attention deficit hyperactivity disorder) Fracture of upper leg Surgical History History of surgery on lower extremity S/P wisdom tooth extraction H/O mastectomy Family History Mother Colon cancer Maternal Aunt Colon cancer Maternal Grandfather Multiple gastric polyps Social History Household Members: Spouse Housing: Apartment Alcohol intake: current Alcohol intake frequency: holidays/special occasions only Patient Tobacco Use Status: Never used Tobacco e-Cigarette/Vaping Use: Never Used Second Hand Smoke Exposure: No service: No Current occupational status: employed 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 Cognitive needs: No Hearing needs: No Vision needs: No Review of Systems Const Denies fatigue, Denies fever(s), Denies night sweats, Denies poor appetite and Denies weight loss ENT Reports Normal hearing present, Denies dental pain, Denies dysphagia, Denies hearing loss, Denies mouth pain, Denies odynophagia, Denies throat swelling, Denies tongue swelling and Reports other (Dentition adequate) Card Reports no additional complaints Resp Reports no additional complaints GI Details: Denies abdominal pain, Denies melena, Denies bloating, Denies hematochezia, Denies constipation, Denies GI cramping, Denies dysphagia, Denies excessive flatus, Denies early satiety, Denies heartburn, Denies diarrhea, Denies nausea, Denies odynophagia, Denies vomiting and Denies hematemesis Skin/Breast Denies pruritus, Denies lesions, Denies rash and Denies jaundice Neuro Reports Normal hearing present and Denies Abnormal speech present Endo Denies fatigue Aller/Immun Denies throat swelling and Denies tongue swelling Physical Exam Const Other: ? Transgender, patient has mixed gender appearance with a dyer and more of a male build but rest as a female. General: cooperative, no acute distress, well developed and well groomed Nutritional Appearance: well nourished and obese centrally obese Orientation/consciousness: oriented to person, oriented to place and oriented to time Limitations: No language barrier and ambulation with walker HEENT Head: Yes normocephalic and Yes atraumatic Eyes General: appearance normal, both eyes and all related structures Pupils: Equal, round and reactive pupils present Neck Neck: Yes normal visual inspection and Yes no lymphadenopathy Thyroid: Thyroid normal Resp Effort & Inspection: normal respiratory effort and able to speak in complete sentences Auscultation: clear to auscultation bilaterally Cardio Rate: regular rate Rhythm: regular rhythm Heart sounds: Normal, physiologic split S2 sound present Peripheral pulses: radial pulses present and posterior tibial pulses present GI Inspection: No distended, No Abdominal panniculus present and Yes obesity Palpation (GI): Soft to palpation, nontender, no guarding, not rigid and No hepatosplenomegaly present Percussion: Yes normal to percussion Auscultation: normal bowel sounds Rectal Exam - Female: deferred Skin General skin exam: no rashes or lesions noted, turgor normal, skin not dry, no jaundice, No spider nevi and no striae Rashes: no rashes Nails: normal Neuro General: oriented to person, oriented to place and oriented to time Cranial nerves: Yes Equal, round and reactive pupils present and Yes Normal hearing present Speech: No Abnormal speech present Extrem General: Yes normal to inspection, No clubbing, No cyanosis and No edema Psych Appearance: grossly normal and well kempt Mental Status: mental status grossly normal Speech and movement: Normal speech and movement present Affect: normal affect Attitude: cooperative Thought process: Normal thought process present and not confabulating Thought content: Normal thought content present Insight: Good insight present (Psych) Judgement: Good judgement present (Psych) Assessment & Plan Assessment & Plan (1) Pre-op examination: Code(s): Z01.818 - Encounter for other preprocedural examination Category: Medical (2) Family history of malignant neoplasm of colon in relative diagnosed when older than 50 years of age: Code(s): Z80.0 - Family history of malignant neoplasm of digestive organs Category: Medical Plan This is her first colonoscopy, her mother had stage 2 CRC at age 50. She denies any bowel or upper GI problems There are no prior problems with anesthesia or sedation. She denies any cardiac or respiratory problems. There are no infectious disease problems. FHX as above. Orders: Referrals GI Procedure Notification Z01.818 - Encounter for other preprocedural examination, Z80.0 - Family history of malignant neoplasm of digestive organs Medications: New peg 3350-electrolytes 236-22.74-6.74 -5.86 gram (Golytely) until fecal effluent is clear; do not exceed a total volume of 2,000 mL 240 mL PO Q10M 4,000 mL 0RF 1 day Z12.11 - Encounter for screening for malignant neoplasm of colon bisacodyl (Dulcolax (bisacodyl)) 10 mg (2 x 5 mg) PO BEDTIME 4 tabs 0RF 2 days Coding Level of Care Code New Pt Level 3 (77376) Diagnoses Pre-op examination Z01.818 Family history of malignant neoplasm of colon in relative diagnosed when older than 50 years of age Z80.0
[2025-02-04 09:59] VITALS: BP 111/59; PULSE 61; O2SAT 98; BMI 32.0
== END 2025-02-04 10:21 | disposition home or self-care (01) ==
LOC: HO.HGI 09:54
PROVIDERS: Visit Provider Nurse Practitioner
DX: Z01.818 Encounter for other preprocedural examination (principal); Z12.11 Encounter for screening for malignant neoplasm of colon; Z80.0 Family history of malignant neoplasm of digestive organs
CPT/HCPCS: 99203